=== PATIENT | female | born 1980 | race American Indian/Alaskan Native ===

== ENCOUNTER 2021-10-11 01:44 | Emergency (ER) | payer MEDICAID ==
--- NOTE | 2021-10-11 02:19 | XRay Report ---
LEFT ANKLE 3 VIEW(S) INDICATION / CLINICAL INFORMATION: FALL COMPARISON: None available. FINDINGS: BONES / JOINT(S): No acute fracture or subluxation. No significant arthritis. SOFT TISSUES: There is swelling about the ankle. ADDITIONAL FINDINGS: None. Signer Name: Kenneth Maddox DO Signed: 10/11/2021 2:15 AM Workstation Name: [email or web address]
--- NOTE | 2021-10-11 10:37 | Emergency Department Report ---
ED Lower Extremity HPI - General Chief Complaint: Extremity Injury, Lower Stated Complaint: POSSIBLE LEFT ANKLE FX Time Seen by Provider: 10/11/21 10:12 Source: patient Mode of arrival: Ambulatory Limitations: No Limitations - History of Present Illness Initial Comments: Chief complaint: Ankle injury HPI: Is a 41-year-old female who presents with left ankle injury. 5 days ago on , she twisted her ankle while walking down a ramp. Left ankle pain and swelling. She is now able to walk. MD Complaint: other (Left ankle pain and swelling) -: Sudden, days(s) (5 days ago) Injury: Ankle: Left Place: home Severity: mild Severity scale (0 -10): 5 Improves With: rest Worsens With: weight bearing Context: other (Twisted ankle while walking down a ramp) - Related Data Allergies Allergy/AdvReac Type Severity Reaction Status Date / Time No Known Allergies Allergy Verified 01/03/16 15:52 ED Review of Systems ROS: Stated complaint: POSSIBLE LEFT ANKLE FX Other details as noted in HPI Constitutional: denies: fever, malaise Musculoskeletal: joint swelling Neurological: denies: numbness, paresthesias ED Past Medical Hx - Past Medical History Previous Medical History?: Yes Hx Psychiatric Treatment: Yes (schizo affective, bipolar, schizophrenia) - Surgical History Past Surgical History?: No - Social History Smoking Status: Current Every Day Smoker ED Physical Exam - General Limitations: No Limitations General appearance: alert, in no apparent distress - Neck Neck exam: Present: normal inspection, full ROM - Respiratory Respiratory exam: Absent: respiratory distress - Expanded Lower Extremity Exam Left Lower Leg exam: Present: normal inspection, full ROM Ankle exam: Present: full ROM, tenderness, swelling. Absent: abrasion, laceration, ecchymosis Foot/Toe exam: Present: normal inspection, full ROM ED Lower Extremity MDM - Radiology Data Radiology results: report reviewed Patient Name: RASHAUN SOSA Gender: Female Date of : 1980 Referring Provider: FLORENTINO, ED Organization: [facility] Accession Number: [id number] Requested Date: October 11, 2021 01:47 Report Status: Final Requested Procedure: 1 Procedure Description: XR ankle 3+V LT Modality: XR Findings Reporting MD: Kenneth Maddox Dictation Time: October 11, 2021 01:15 Vending Machine Assembler: Not available Disassembler Date: LEFT ANKLE 3 VIEW(S) INDICATION / CLINICAL INFORMATION: FALL COMPARISON: None available. FINDINGS: BONES / JOINT(S): No acute fracture or subluxation. No significant arthritis. SOFT TISSUES: There is swelling about the ankle. ADDITIONAL FINDINGS: None. Signer Name: Kenneth Maddox DO Signed: 10/11/2021 1:15 AM Workstation Name: [employer] - Medical Decision Making Left ankle sprain: Patient given supportive care instructions no evidence of fracture dislocation according to radiograph report and clinical exam Critical care attestation.: If time is entered above; I have spent that time in minutes in the direct care of this critically ill patient, excluding procedure time. ED Disposition Clinical Impression: Left ankle sprain Disposition: 01 HOME / SELF CARE / HOMELESS Is pt being admited?: No Does the pt Need Aspirin: No Condition: Stable Instructions: Ankle Sprain, [id number] Referrals: MELODY THORNTON MD [Staff Physician] - as needed
[2021-10-11 11:06] VITALS: BP 138/70
== END 2021-10-11 11:06 | disposition home or self-care (01) ==
LOC: ED 01:44
DX: S93.402A Sprain of unspecified ligament of left ankle, initial encounter (principal); F17.200 Nicotine dependence, unspecified, uncomplicated; F31.9 Bipolar disorder, unspecified; X58.XXXA Exposure to other specified factors, initial encounter; Y93.89 Activity, other specified; Y92.89 Other specified places as the place of occurrence of the external cause; Y99.8 Other external cause status
CPT/HCPCS: 99283